=== PATIENT | male | born 1990 | race Caucasian/White ===

== ENCOUNTER 2016-08-07 00:22 | Emergency (ER) | payer MEDICAID ==
[2016-08-07 00:26] VITALS: BP 140/94
[2016-08-07] MEDS ORDERED: Fluorescein 1 MG Ophth Strip EYERT ONE (00:34)
[2016-08-07] MEDS ORDERED: Tetracaine HCl/PF 0.5% 4 ML Bottle EYERT ONE (00:34)
--- NOTE | 2016-08-07 00:51 | EDM.PDOC ---
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 This was earlier this evening. He has severe eye pain to the right eye. He has no other complaints. He did have one alcoholic beverage before coming in. He states it is difficult to see out of his eye as closing it makes it feel better. He did attempt to flush it at home. Onset: Today Severity: Moderate Right Eye Pain Score (Numeric/FACES): 6 - Related Data Allergies Allergy/AdvReac Type Severity Reaction Status Date / Time No Known Allergies Allergy Verified 03/31/15 19:15 Home Meds: Home Meds . [No Known Home Meds] 03/31/15 [History] Past Medical History - Past Health History Medical/Surgical History: Denies Medical/Surgical History - Past Surgical History HEENT Surgical History: Reports: Oral Surgery - Past Imaging History Past Imaging History: Reports: None - History Comment History Comment: No previous surgical history Social & Family History - Family History Cardiac: Reports: None Respiratory: Reports: None GI: Reports: None Musculoskeletal: Reports: None Neurological: Reports: None - Tobacco Use Smoking Status *Q: Current Every Day Smoker Years of Tobacco use: 16 Packs/Tins Daily: 1 - Caffeine Use Caffeine Use: Reports: Soda - Alcohol Use Days Per Week of Alcohol Use: 4 - Recreational Drug Use Recreational Drug Use: No - Living Situation & Occupation Living situation: Reports: ED ROS GENERAL - Review of Systems Review Of Systems: ROS reveals no pertinent complaints other than HPI. ED EXAM GENERAL W FULL EYE - Physical Exam Exam: See Below Exam Limited By: No Limitations General Appearance: Alert, WD/WN, Mild Distress Eye Exam: Right Eye: Corneal Abrasion, Bilateral Eye: EOMI, PERRL Visual Acuity (R) 20/: 25 Visual Acuity (L) 20/: 20 With Correction: Yes Eyelids: Right: Normal Appearance Cornea Exam: Right: Corneal Abrasion, Examined with Flourescein, Left: Normal Appearance Extraocular Movements: Bilateral: Intact Pupils: Normal Accommodation Pupillary Size: Bilateral: 3 mm Pupillary Reaction: Bilateral: Brisk Anterior Chamber: Bilateral: Normal Appearance Posterior Chamber: Bilateral: Normal Funduscopic Head: Atraumatic, Normocephalic Course - Vital Signs Last Recorded V/S: Last Vital Signs Temp 36.7 C 08/07/16 00:24 Pulse 78 08/07/16 00:24 Resp 18 08/07/16 00:24 BP 140/94 H 08/07/16 00:24 Pulse Ox 96 08/07/16 00:24 - Orders/Labs/Meds Meds: Medications Discontinued Medications Generic Name Dose Route Start Last Admin Trade Name [place] PRN Reason Stop Dose Admin Fluorescein Sodium 1 mg 08/07/16 00:34 08/07/16 00:39 Ful-Betzy EYERT 08/07/16 00:35 1 mg ONETIME ONE Administration Tetracaine HCl 1 ml 08/07/16 00:34 08/07/16 00:38 Tetracaine 0.5% Steri-Unit Shagufta EYERT 08/07/16 00:35 2 drop ONETIME ONE Administration - Re-Assessments/Exams Free Text/Narrative Re-Assessment/Exam: 08/07/16 01:24 tetracaine and fluorescein applied. No foreign object identified. Corneal abrasion. Nader lense applied to right eye to flush. 08/07/16 01:35 Departure - Departure Time of Disposition: 01:36 Disposition: Home, Self-Care 01 Condition: Good Clinical Impression: Corneal abrasion, right - Discharge Information Instructions: Eye Foreign Body, [id number], Corneal Abrasion, [id number] Forms: ED Department Discharge Additional Instructions: I did include instructions for eye foreign body this morning, though I did not see any objects in your eye. You do however have corneal abrasions. Take the Cipro eye drops to the right eye. Take 2 drops 3-4 times daily for 5 days or until finished. Follow up with your eye doctor if you continue to have pain in your eye. Take the pain medications only if needed. You may also try ibuprofen. USE EYE PROTECTION WHEN WORKING WITH TOOLS TO AVOID INJURY Please call us with any questions or concerns. - Problem List & Annotations (1) Corneal abrasion, right SNOMED Code(s): 92823891 Code(s): S05.01XA - INJ CONJUNCTIVA AND CORNEAL ABRASION W/O FB, RIGHT EYE, INIT Status: Acute Priority: Low Current Visit: Yes Qualifiers: Encounter type: initial encounter Qualified Code(s): S05.01XA - Injury of conjunctiva and corneal abrasion without foreign body, right eye, initial encounter - Problem List Review Problem List Initiated/Reviewed/Updated: Yes - Assessment/Plan Assessment:: right corneal abrasion Plan: I did include instructions for eye foreign body this morning, though I did not see any objects in your eye. You do however have corneal abrasions. Take the Cipro eye drops to the right eye. Take 2 drops 3-4 times daily for 5 days or until finished. Follow up with your eye doctor if you continue to have pain in your eye. Take the pain medications only if needed. You may also try ibuprofen. USE EYE PROTECTION WHEN WORKING WITH TOOLS TO AVOID INJURY Please call us with any questions or concerns.
[2016-08-07] MEDS ORDERED: Fluorescein 1 MG Ophth Strip ONE (01:26)
[2016-08-07] MEDS ORDERED: Erythromycin Base 0.5% Ophth Oint 3.5 GM Tube EYERT ONE (01:26)
[2016-08-07] MEDS ORDERED: Take Home: Acetaminophen/HYDROcodone 325-10 MG, 5 Tab Pack PO ONE (01:27)
[2016-08-07] MEDS ORDERED: Ciprofloxacin 0.3% Ophth Soln 2.5 ML Bottle EYERT ONE (01:30)
[2016-08-07] MEDS ORDERED: Acetaminophen/HYDROcodone 325-10 MG Tab PO ONE (01:30)
== END 2016-08-07 01:40 | disposition home or self-care (01) ==
LOC: VM.ED 00:22
DX: S05.01XA Injury of conjunctiva and corneal abrasion without foreign body, right eye, initial encounter (principal); F17.210 Nicotine dependence, cigarettes, uncomplicated; Z98.890 Other specified postprocedural states; X58.XXXA Exposure to other specified factors, initial encounter
CPT/HCPCS: 99283; A9270; 65210

== ENCOUNTER 2017-06-16 06:15 | Emergency (ER) | payer MEDICAID ==
[2017-06-16 06:21] VITALS: BP 137/95
--- NOTE | 2017-06-16 06:37 | EDM.PDOC ---
ED HPI GENERAL MEDICAL PROBLEM - General Chief Complaint: ENT Problem Stated Complaint: Right ear pain Time Seen by Provider: 06/16/17 06:30 Source of Information: Reports: Patient History Limitations: Reports: No Limitations - History of Present Illness INITIAL COMMENTS - FREE TEXT/NARRATIVE: Patient awoke with complaints of right ear pain. Some dizziness associated with this. No nausea or vomiting. He has no other symptoms. Onset: Today, Sudden Duration: Getting Worse Location: Reports: Other (right ear) Quality: Reports: Stabbing Severity: Moderate Associated Symptoms: Reports: No Other Symptoms Treatments BUFFER NICKEL: Reports: Other (see below) (none) right ear Pain Score (Numeric/FACES): 5 - Related Data Allergies Allergy/AdvReac Type Severity Reaction Status Date / Time No Known Allergies Allergy Verified 06/16/17 06:22 Home Meds: Home Meds . [No Known Home Meds] 03/31/15 [History] Past Medical History - Past Health History Medical/Surgical History: Denies Medical/Surgical History - Past Surgical History HEENT Surgical History: Reports: Oral Surgery - Past Imaging History Past Imaging History: Reports: None - History Comment History Comment: No previous surgical history Social & Family History - Family History Cardiac: Reports: None Respiratory: Reports: None GI: Reports: None Musculoskeletal: Reports: None Neurological: Reports: None - Tobacco Use Smoking Status *Q: Current Every Day Smoker Years of Tobacco use: 16 Packs/Tins Daily: 1 - Caffeine Use Caffeine Use: Reports: Soda - Alcohol Use Days Per Week of Alcohol Use: 4 - Recreational Drug Use Recreational Drug Use: No - Living Situation & Occupation Living situation: Reports: ED ROS ENT - Review of Systems Review Of Systems: See Below Constitutional: Reports: No Symptoms HEENT: Reports: Ear Pain (right) Respiratory: Reports: No Symptoms Cardiovascular: Reports: No Symptoms Endocrine: Reports: No Symptoms GI/Abdominal: Reports: No Symptoms : Reports: No Symptoms Musculoskeletal: Reports: No Symptoms Skin: Reports: No Symptoms Neurological: Reports: Dizziness Psychiatric: Reports: No Symptoms Hematologic/Lymphatic: Reports: No Symptoms Immunologic: Reports: No Symptoms ED EXAM, ENT - Physical Exam Exam: See Below Exam Limited By: No Limitations General Appearance: Alert, WD/WN, No Apparent Distress Eye Exam: Bilateral Eye: EOMI, PERRL Ears: Normal External Exam, Normal Canal, Hearing Grossly Normal, Normal TMs, TM Fluid Nose: Normal Inspection, Normal Mucousa, No Blood Mouth/Throat: Normal Inspection, Normal Gums, Normal Lips, Normal Oropharynx, Normal Teeth Head: Atraumatic, Normocephalic Neck: Normal Inspection, Supple, Non-Tender, Full Range of Motion Respiratory/Chest: No Respiratory Distress, Lungs Clear, Normal Breath Sounds, No Accessory Muscle Use, Chest Non-Tender Cardiovascular: Normal Peripheral Pulses, Regular Rate, Rhythm, No Edema, No Gallop, No JVD, No Murmur, No Rub Neurological: Alert, Oriented, CN II-XII Intact, Normal Cognition, Normal Gait, Normal Reflexes, No Motor/Sensory Deficits Psychiatric: Normal Affect, Normal Mood Skin: Warm, Dry, Intact, Normal Color, No Rash Lymphatic: No Adenopathy Course - Vital Signs Last Recorded V/S: Last Vital Signs Temp 36.9 C 06/16/17 06:15 Pulse 76 06/16/17 06:15 Resp 16 06/16/17 06:15 BP 137/95 H 06/16/17 06:15 Pulse Ox Departure - Departure Time of Disposition: 06:37 Disposition: Home, Self-Care 01 Condition: Good Clinical Impression: Fluid level behind tympanic membrane of right ear - Discharge Information Additional Instructions: You have fluid collection in your ear. Use antihistamines to help dry the fluid up. These can include claritin, zyrtec , benadryl can be used but may cause drowsiness. Take tylenol and ibuprofen for pain. Follow up at the clinic with your primary doctor for any additional symptom management. Call with any questions or concerns. - Problem List & Annotations (1) Fluid level behind tympanic membrane of right ear SNOMED Code(s): 027803508 Code(s): H65.91 - UNSPECIFIED NONSUPPURATIVE OTITIS MEDIA, RIGHT EAR Status : Acute Priority: Low - Problem List Review Problem List Initiated/Reviewed/Updated: Yes - Assessment/Plan Assessment:: fluid collection behind right ear TM Plan: You have fluid collection in your ear. Use antihistamines to help dry the fluid up. These can include claritin, zyrtec , benadryl can be used but may cause drowsiness. Take tylenol and ibuprofen for pain. Follow up at the clinic with your primary doctor for any additional symptom management. Call with any questions or concerns.
== END 2017-06-16 06:45 | disposition home or self-care (01) ==
LOC: VM.ED 06:15
DX: H65.91 Unspecified nonsuppurative otitis media, right ear (principal); F17.210 Nicotine dependence, cigarettes, uncomplicated
CPT/HCPCS: 99282

== ENCOUNTER 2017-08-06 04:10 | Emergency (ER) | payer MEDICAID ==
[2017-08-06] MEDS ORDERED: Ondansetron 4 MG/2 ML SDV IVPUSH ONE (04:21)
[2017-08-06] MEDS ORDERED: Lactated Ringers 1,000 ML IV SCH (04:30)
[2017-08-06 05:17] LABS: CHLORIDE,CL 106 mmol/L (98-107); SODIUM,NA 143 mmol/L (136-145)
[2017-08-06 05:24] VITALS: BP 129/81
--- NOTE | 2017-08-06 08:47 | EDM.PDOC ---
ED HPI GENERAL MEDICAL PROBLEM - General Chief Complaint: Drug or Alcohol Abuse Stated Complaint: ETOH Time Seen by Provider: 08/06/17 04:21 Source of Information: Reports: Patient, EMS History Limitations: Reports: No Limitations - History of Present Illness INITIAL COMMENTS - FREE TEXT/NARRATIVE: Pt. presents to ER via EMS. Pt. has been out drinking and consumed several beers and "Jag bombs". Pt. states that he was feeling ill when lying in bed and crawled outside for some air. Pt. found pt. lying in the grass and stated that it was difficult to wake the pt. He denies any trauma. EMS stated that he was alert to verbal stimuli and recalls events of the night. Pt. denies any chest pain, shortness of breath, lightheadedness, or weakness. His only complaint is that of GI discomfort and nausea. He denies vomiting and diarrhea. Location: Reports: Generalized - Related Data Allergies Allergy/AdvReac Type Severity Reaction Status Date / Time No Known Allergies Allergy Verified 08/06/17 05:21 Home Meds: Home Meds . [No Known Home Meds] 03/31/15 [History] Past Medical History - Past Health History Medical/Surgical History: Denies Medical/Surgical History - Past Surgical History HEENT Surgical History: Reports: Oral Surgery - Past Imaging History Past Imaging History: Reports: None - History Comment History Comment: No previous surgical history Social & Family History - Family History Cardiac: Reports: None Respiratory: Reports: None GI: Reports: None Musculoskeletal: Reports: None Neurological: Reports: None - Tobacco Use Smoking Status *Q: Current Every Day Smoker Years of Tobacco use: 10 Packs/Tins Daily: 1 - Caffeine Use Caffeine Use: Reports: Soda - Recreational Drug Use Recreational Drug Use: No - Living Situation & Occupation Living situation: Reports: ED ROS GENERAL - Review of Systems Review Of Systems: See Below Constitutional: Reports: No Symptoms HEENT: Reports: No Symptoms Respiratory: Reports: No Symptoms Cardiovascular: Reports: No Symptoms Endocrine: Reports: No Symptoms GI/Abdominal: Reports: Abdominal Pain, Nausea : Reports: No Symptoms Musculoskeletal: Reports: No Symptoms Skin: Reports: No Symptoms Neurological: Reports: No Symptoms Psychiatric: Reports: No Symptoms Hematologic/Lymphatic: Reports: No Symptoms Immunologic: Reports: No Symptoms ED EXAM, GENERAL - Physical Exam Exam: See Below Exam Limited By: No Limitations General Appearance: Alert, WD/WN, No Apparent Distress Eye Exam: Bilateral Eye: EOMI, Normal Fundi, Normal Inspection, PERRL Ears: Normal External Exam, Normal Canal, Hearing Grossly Normal, Normal TMs Nose: Normal Inspection, Normal Mucosa, No Blood Throat/Mouth: Normal Inspection, Normal Lips, Normal Teeth, Normal Gums, Normal Oropharynx, Normal Voice, No Airway Compromise Head: Atraumatic, Normocephalic Neck: Normal Inspection, Supple, Non-Tender, Full Range of Motion Respiratory/Chest: No Respiratory Distress, Lungs Clear, Normal Breath Sounds, No Accessory Muscle Use, Chest Non-Tender Cardiovascular: Normal Peripheral Pulses, Regular Rate, Rhythm, No Edema, No Gallop, No JVD, No Murmur, No Rub Peripheral Pulses: 4+: Radial (L), Radial (R) GI/Abdominal: Normal Bowel Sounds, Soft, Non-Tender, No Organomegaly, No Distention, No Abnormal Bruit, No Mass (Male) Exam: Deferred Rectal (Males) Exam: Deferred Back Exam: Normal Inspection, Full Range of Motion, NT Extremities: Normal Inspection, Normal Range of Motion, Non-Tender, Normal Capillary Refill, No Pedal Edema Neurological: Alert, Oriented, CN II-XII Intact, Normal Cognition, Normal Gait, Normal Reflexes, No Motor/Sensory Deficits Psychiatric: Normal Affect, Normal Mood Skin Exam: Warm, Dry, Intact, Normal Color, No Rash Course - Vital Signs Last Recorded V/S: Last Vital Signs Temp 36.6 C 08/06/17 04:10 Pulse 83 08/06/17 04:10 Resp 14 08/06/17 04:10 BP 129/81 08/06/17 04:10 Pulse Ox 94 L 08/06/17 04:10 - Orders/Labs/Meds Labs: Laboratory Tests 08/06/17 08/06/17 Range/Units 04:51 04:51 WBC 10.1 H (4.0-10.0) x10^3/uL RBC 4.81 (4.5-6.0) x10^6/uL Hgb 14.6 D (14.0-18.0) g/dL Hct 43.2 (40.0-52.0) % MCV 89.8 D (78.0-93.0) fL MCH 30.4 (26.0-32.0) pg MCHC 33.8 (32.0-36.0) g/dL RDW Coeff of Lara 13.4 (10.0-15.0) % Plt Count 214 (130-400) x10^3/uL Neut % (Auto) 69.9 (50.0-80.0) % Lymph % (Auto) 20.8 L (25.0-50.0) % [place] % (Auto) 7.4 (2.0-11.0) % Eos % (Auto) 1.7 (0.0-4.0) % Baso % (Auto) 0.2 (0.2-1.2) % Sodium 143 (136-145) mmol/L Potassium 3.7 (3.5-5.1) mmol/L Chloride 106 (98-107) mmol/L Carbon Dioxide 26 (21-32) mmol/L Anion Gap 14.7 (10-20) mmol/L BUN 8 (7-18) mg/dL Creatinine 0.9 (0.70-1.30) mg/dL Est Cr Clr Drug Dosing TNP Estimated GFR (MDRD) > 60 Glucose 107 H (74-106) mg/dL Calcium 7.9 L (8.5-10.1) mg/dL Corrected Calcium 8.38 L (8.5-10.1) mg/dL Total Bilirubin 0.2 (0.2-1.0) mg/dL AST 26 (15-37) U/L ALT 62 (16-63) U/L Alkaline Phosphatase 95 (46-116) U/L Total Protein 6.7 (6.4-8.2) g/dL Albumin 3.4 (3.4-5.0) g/dL Globulin 3.3 Albumin/Globulin Ratio 1.03 Ethyl Alcohol 116 H (0-3) mg/dL Meds: Medications Discontinued Medications Generic Name Dose Route Start Last Admin Trade Name Freq PRN Reason Stop Dose Admin Lactated Ringer's 1,000 mls @ 500 mls/hr 08/06/17 04:30 08/06/17 04:23 Ringers, Lactated IV 500 mls/hr ASDIRECTED CASS Administration Ondansetron HCl 4 mg 08/06/17 04:21 08/06/17 04:26 Zofran IVPUSH 08/06/17 04:22 4 mg ONETIME ONE Administration Departure - Departure Time of Disposition: 05:32 Disposition: Home, Self-Care 01 Condition: Good Clinical Impression: Intoxication - Discharge Information Instructions: Alcohol Intoxication, [id number] Referrals: PCP,Unobtain [Ordering Only Provider] - Forms: ED Department Discharge Additional Instructions: Follow-up in clinic as needed.
== END 2017-08-06 05:32 | disposition home or self-care (01) ==
LOC: VM.ED 04:10
DX: F10.129 Alcohol abuse with intoxication, unspecified (principal); F17.210 Nicotine dependence, cigarettes, uncomplicated; Y90.5 Blood alcohol level of 100-119 mg/100 ml
CPT/HCPCS: 36415; 80053; 85025; 96365; 96375; 99284; G0480; J2405; J7120

== ENCOUNTER 2019-01-02 00:33 | Emergency (ER) | payer MEDICAID ==
[2019-01-02 01:06] VITALS: BP 137/96; PULSE 91
--- NOTE | 2019-01-02 01:06 | EDM.PDOC ---
ED HPI GENERAL MEDICAL PROBLEM - General Chief Complaint: General Stated Complaint: Lethargy - Dizzy Time Seen by Provider: 01/02/19 00:45 - History of Present Illness INITIAL COMMENTS - FREE TEXT/NARRATIVE: Jarret is a 28 y/o male who comes to the ER with vague feelings of lethargy and feeling "hot and cold". He had hemorrhoid surgery on Monday in [place]. He has been using hydrocodone for pain with the last dose taken at 1600 today. He has not yet had a BM since surgery. He is taking stool softners. He does admit to smoking marijuana at 2pm today and then started to feel weird after that. Rectal Area Pain Score (Numeric/FACES): 10 - Related Data Allergies Allergy/AdvReac Type Severity Reaction Status Date / Time No Known Allergies Allergy Verified 01/02/19 00:34 Home Meds: Home Meds . [No Known Home Meds] 03/31/15 [History] Past Medical History - Past Health History Medical/Surgical History: Denies Medical/Surgical History - Past Surgical History HEENT Surgical History: Reports: Oral Surgery - Past Imaging History Past Imaging History: Reports: None - History Comment History Comment: No previous surgical history Social & Family History - Family History Cardiac: Reports: None Respiratory: Reports: None GI: Reports: None Musculoskeletal: Reports: None Neurological: Reports: None - Caffeine Use Caffeine Use: Reports: Soda - Living Situation & Occupation Living situation: Reports: ED ROS GENERAL - Review of Systems Review Of Systems: See Below Constitutional: Reports: Malaise, Weakness HEENT: Reports: No Symptoms Respiratory: Reports: No Symptoms Cardiovascular: Reports: No Symptoms Endocrine: Reports: No Symptoms GI/Abdominal: Reports: Constipation : Reports: No Symptoms Musculoskeletal: Reports: No Symptoms Skin: Reports: No Symptoms Neurological: Reports: No Symptoms Psychiatric: Reports: No Symptoms Hematologic/Lymphatic: Reports: No Symptoms Immunologic: Reports: No Symptoms ED EXAM, GENERAL - Physical Exam Exam: See Below Exam Limited By: No Limitations General Appearance: Alert, WD/WN, Other (Adult male, Lying on ER cart) Ears: Hearing Grossly Normal Nose: Normal Inspection Throat/Mouth: Normal Lips, Normal Voice, No Airway Compromise Head: Atraumatic, Normocephalic Neck: Normal Inspection Respiratory/Chest: No Respiratory Distress, Lungs Clear, Normal Breath Sounds, Chest Non-Tender Cardiovascular: Normal Peripheral Pulses, Regular Rate, Rhythm, No Edema GI/Abdominal: Normal Bowel Sounds, Soft (Male) Exam: Deferred Rectal (Males) Exam: Other (note red surgical rubberband protruding from rectum , no obvious signs of infection, tenderness with exam to just spread buttocks) Back Exam: Normal Inspection Extremities: Normal Inspection, Normal Range of Motion, Normal Capillary Refill Neurological: Alert, Oriented, CN II-XII Intact, Normal Cognition Psychiatric: Anxious Skin Exam: Warm, Dry, Intact, Normal Color Lymphatic: No Adenopathy Course - Vital Signs Text/Narrative:: The patient was seen by the [facility] Labs an Xrays ordered. He was offered pain meds , but declined. 0130 Lab results reviewed. All negative other than UDS + for THC and Opiates as expected. 0140 Xray reviewed, note large amount fo gas and stool in colon. Advised to obtain Magnesium Citrate OTC, Discharge instructions were given and he left the ER in stable condition. Last Recorded V/S: Last Vital Signs Temp 36.2 C 01/02/19 01:03 Pulse 91 01/02/19 01:03 Resp 14 01/02/19 01:03 BP 137/96 H 01/02/19 01:03 Pulse Ox 98 01/02/19 01:03 - Orders/Labs/Meds Orders: Active Orders 24 hr Category Date Time Status Abdomen 2V AP Flat Upright [CR] Stat Exams 01/02/19 01:00 Ordered Labs: Laboratory Tests 01/02/19 01/02/19 01/02/19 Range/Units 01:09 01:09 01:12 WBC 8.9 (4.0-10.0) x10^3/uL RBC 5.64 (4.5-6.0) x10^6/uL Hgb 17.0 D (14.0-18.0) g/dL Hct 47.9 (40.0-52.0) % MCV 84.9 D (78.0-93.0) fL MCH 30.1 (26.0-32.0) pg MCHC 35.5 (32.0-36.0) g/dL RDW Coeff of Lara 12.9 (10.0-15.0) % Plt Count 246 (130-400) x10^3/uL Neut % (Auto) 55.8 (50.0-80.0) % Lymph % (Auto) 34.0 (25.0-50.0) % [place] % (Auto) 6.6 (2.0-11.0) % Eos % (Auto) 3.3 (0.0-4.0) % Baso % (Auto) 0.3 (0.2-1.2) % Sodium 141 (136-145) mmol/L Potassium 4.0 (3.5-5.1) mmol/L Chloride 102 (98-107) mmol/L Carbon Dioxide 27 (21-32) mmol/L Anion Gap 16.0 (10-20) mmol/L BUN 11 (7-18) mg/dL Creatinine 1.2 (0.70-1.30) mg/dL Est Cr Clr Drug Dosing 72.44 mL/min Estimated GFR (MDRD) > 60 Glucose 115 H (74-106) mg/dL Calcium 8.5 (8.5-10.1) mg/dL Corrected Calcium 8.74 (8.5-10.1) mg/dL Total Bilirubin 0.5 (0.2-1.0) mg/dL AST 27 (15-37) U/L ALT 49 (16-63) U/L Alkaline Phosphatase 95 (46-116) U/L Total Protein 7.6 (6.4-8.2) g/dL Albumin 3.7 (3.4-5.0) g/dL Globulin 3.9 Albumin/Globulin Ratio 0.95 Urine Color Yellow (YELLOW) Urine Appearance Clear (CLEAR) Urine pH 6.5 (5.0-8.0) Ur Specific [place] 1.010 Urine Protein Negative (NEGATIVE) mg/dL Urine Glucose (UA) Negative (NEGATIVE) mg/dL Urine Ketones Negative (NEGATIVE) mg/dL Urine Occult Blood Negative (NEGATIVE) Urine Nitrite Negative (NEGATIVE) Urine Bilirubin Negative (NEGATIVE) Urine Urobilinogen 0.2 (0.2) EU/dL Ur Leukocyte Esterase Negative (NEGATIVE) Urine Opiates Screen (NEGATIVE) Ur Buprenorphine Scrn (NEGATIVE) Ur Oxycodone Screen (NEGATIVE) Ur EDDP (Meth Metab) (NEGATIVE) Urine Methadone Screen (NEGATIVE) Ur Barbituates Screen (NEGATIVE) Ur Tricyclics Screen (NEGATIVE) Ur Phencyclidine Scrn (NEGATIVE) Ur Amphetamines Screen (NEGATIVE) U Methamphetamines Scrn (NEGATIVE) Urine MDMA Screen (NEGATIVE) U Benzodiazepines Scrn (NEGATIVE) Urine Cocaine Screen (NEGATIVE) U Marijuana (THC) Screen (NEGATIVE) 01/02/19 Range/Units 01:12 WBC (4.0-10.0) x10^3/uL RBC (4.5-6.0) x10^6/uL Hgb (14.0-18.0) g/dL Hct (40.0-52.0) % MCV (78.0-93.0) fL MCH (26.0-32.0) pg MCHC (32.0-36.0) g/dL RDW Coeff of Lara (10.0-15.0) % Plt Count (130-400) x10^3/uL Neut % (Auto) (50.0-80.0) % Lymph % (Auto) (25.0-50.0) % [place] % (Auto) (2.0-11.0) % Eos % (Auto) (0.0-4.0) % Baso % (Auto) (0.2-1.2) % Sodium (136-145) mmol/L Potassium (3.5-5.1) mmol/L Chloride (98-107) mmol/L Carbon Dioxide (21-32) mmol/L Anion Gap (10-20) mmol/L BUN (7-18) mg/dL Creatinine (0.70-1.30) mg/dL Est Cr Clr Drug Dosing mL/min Estimated GFR (MDRD) Glucose (74-106) mg/dL Calcium (8.5-10.1) mg/dL Corrected Calcium (8.5-10.1) mg/dL Total Bilirubin (0.2-1.0) mg/dL AST (15-37) U/L ALT (16-63) U/L Alkaline Phosphatase (46-116) U/L Total Protein (6.4-8.2) g/dL Albumin (3.4-5.0) g/dL Globulin Albumin/Globulin Ratio Urine Color (YELLOW) Urine Appearance (CLEAR) Urine pH (5.0-8.0) Ur Specific [place] Urine Protein (NEGATIVE) mg/dL Urine Glucose (UA) (NEGATIVE) mg/dL Urine Ketones (NEGATIVE) mg/dL Urine Occult Blood (NEGATIVE) Urine Nitrite (NEGATIVE) Urine Bilirubin (NEGATIVE) Urine Urobilinogen (0.2) EU/dL Ur Leukocyte Esterase (NEGATIVE) Urine Opiates Screen Positive H (NEGATIVE) Ur Buprenorphine Scrn Negative (NEGATIVE) Ur Oxycodone Screen Negative (NEGATIVE) Ur EDDP (Meth Metab) Negative (NEGATIVE) Urine Methadone Screen Negative (NEGATIVE) Ur Barbituates Screen Negative (NEGATIVE) Ur Tricyclics Screen Negative (NEGATIVE) Ur Phencyclidine Scrn Negative (NEGATIVE) Ur Amphetamines Screen Negative (NEGATIVE) U Methamphetamines Scrn Negative (NEGATIVE) Urine MDMA Screen Negative (NEGATIVE) U Benzodiazepines Scrn Negative (NEGATIVE) Urine Cocaine Screen Negative (NEGATIVE) U Marijuana (THC) Screen Positive H (NEGATIVE) - Re-Assessments/Exams Free Text/Narrative Re-Assessment/Exam: 01/02/19 01:43 XR Abdomen 2V=note large amount of gas and stool in colon Departure - Departure Time of Disposition: 01:44 Disposition: DC/Tfer W/I Hosp To Swing 61 Condition: Good Clinical Impression: Constipation - Discharge Information *PRESCRIPTION DRUG MONITORING PROGRAM REVIEWED*: Not Applicable *COPY OF PRESCRIPTION DRUG MONITORING REPORT IN PATIENT CHRISSY: Not Applicable Instructions: Constipation, Adult Referrals: Jami Feliz PA-C [Primary Care Provider] - Forms: ED Department Discharge Additional Instructions: -Magnesium Citrate 1 bottle orally. Pick this up at the pharmacy or dept store. -Drink plenty of fluids. -Follow up with your surgeon for further concerns regarding your post op guidelines -Return to the ER as needed - My Orders Last 24 Hours: My Active Orders 01/02/19 01:00 Abdomen 2V AP Flat Upright [CR] Stat - Assessment/Plan Last 24 Hours: My Active Orders 01/02/19 01:00 Abdomen 2V AP Flat Upright [CR] Stat
[2019-01-02 01:24] LABS: BUPRENORPHINE,URINE NEGATIVE (NEGATIVE); MARIJUANA,URINE POSITIVE (NEGATIVE); METHYLENEDIOXYMETHAMP,UR NEGATIVE (NEGATIVE)
[2019-01-02 01:25] LABS: PHENCYCLIDINE,URINE NEGATIVE (NEGATIVE)
[2019-01-02 01:38] LABS: CHLORIDE,CL 102 mmol/L (98-107); SODIUM,NA 141 mmol/L (136-145)
--- NOTE | 2019-01-02 07:51 | CR ---
[id number] RAD/RAD Abd Flat and Upright 2V EXAM: RAD Abd Flat and Upright 2V INDICATION: CONSTIPATED. COMPARISON: None. DISCUSSION: Unobstructed bowel gas pattern. No radiographically evident pneumoperitoneum. Moderate to large amount retained stool within the colon. IMPRESSION: Moderate to large amount of retained stool within the colon. No evidence of obstruction. Austen Virk DO 01/02/19 0750 Thank you for allowing us to participate in the care of your patient.
== END 2019-01-02 01:49 | disposition home or self-care (01) ==
LOC: VM.ED 00:33
DX: K59.00 Constipation, unspecified (principal)
CPT/HCPCS: 36415; 74019; 80053; 80305-QW; 81003; 85025; 99285-25

== ENCOUNTER 2020-12-13 10:23 | Emergency (ER) | payer MEDICAID ==
[2020-12-13 11:11] VITALS: BP 146/101; PULSE 87
--- NOTE | 2020-12-13 11:11 | EDM.PDOC ---
ED HPI GENERAL MEDICAL PROBLEM - General Chief Complaint: Abdominal Pain Stated Complaint: STOMACH PAIN, DIZZY Time Seen by Provider: 12/13/20 10:40 Source of Information: Reports: Patient History Limitations: Reports: No Limitations - History of Present Illness INITIAL COMMENTS - FREE TEXT/NARRATIVE: -year-old white male that presents the ER with ongoing diarrhea about 20 times last 2 days nausea with vomiting x1 lightheadedness dizziness and abdominal cramping. Patient states that this started yesterday after being diagnosed with shingles 3 days ago and started acyclovir 2 days ago. Patient states that the diarrhea started about 4 5 hours after starting the medication and abdominal cramping started today.. Patient states has been eating and drinking normally with no change in diet He states abdominal cramping is about a 6 out of 10 diffusely all over and he states his shingles pain is probably about a 8 out of 10 on the left side epigastric area he feels like it sharp and burning stabbing. He has no other complaints at this time Duration: Day(s): Location: Reports: Chest, Abdomen Quality: Reports: Burning, Dull, Pressure, Sharp, Stabbing Improves with: Reports: None Worsens with: Reports: None Associated Symptoms: Reports: Nausea/Vomiting, Rash. Denies: Chest Pain, Cough, Diaphoresis, Fever/Chills, Headaches, Loss of Appetite, Shortness of Breath - Related Data Allergies Allergy/AdvReac Type Severity Reaction Status Date / Time No Known Allergies Allergy Verified 01/02/19 00:34 Home Meds: Home Meds . [No Known Home Meds] 03/31/15 [History] Past Medical History - Past Health History Medical/Surgical History: Denies Medical/Surgical History Gastrointestinal History: Reports: Other (See Below) Other Gastrointestinal History: Perianal cyst Psychiatric History: Reports: Anxiety, Depression - Past Surgical History HEENT Surgical History: Reports: Oral Surgery - Past Imaging History Past Imaging History: Reports: None - History Comment History Comment: No previous surgical history Social & Family History - Family History Cardiac: Reports: None Respiratory: Reports: None GI: Reports: None Musculoskeletal: Reports: None Neurological: Reports: None - Caffeine Use Caffeine Use: Reports: Soda - Living Situation & Occupation Living situation: Reports: ED ROS GENERAL - Review of Systems Review Of Systems: See Below Constitutional: Reports: No Symptoms. Denies: Fever, Chills, Malaise, Weakness, Fatigue HEENT: Reports: No Symptoms Respiratory: Reports: No Symptoms Cardiovascular: Reports: No Symptoms Endocrine: Reports: No Symptoms GI/Abdominal: Reports: Abdominal Pain, Diarrhea, Nausea, Vomiting. Denies: Black Stool, Bloody Stool, Constipation, Decreased Appetite : Reports: No Symptoms Musculoskeletal: Reports: No Symptoms Skin: Reports: No Symptoms Neurological: Reports: No Symptoms Psychiatric: Reports: No Symptoms Hematologic/Lymphatic: Reports: No Symptoms Immunologic: Reports: No Symptoms ED EXAM, DIZZINESS - Physical Exam Exam: See Below Exam Limited By: No Limitations General Appearance: Alert, WD/WN, No Apparent Distress, Other (Patient is noted to be sleeping prior to going into the room on the bed no acute distress noted) Eye Exam: Bilateral Eye: EOMI, Normal Inspection, PERRL Ears: Normal External Exam, Normal Canal, Hearing Grossly Normal, Normal TMs, Other (Right-sided cerumen impaction) Nose: Normal Inspection, No Blood Throat/Mouth: Normal Inspection, Normal Lips, Normal Teeth, Normal Gums, Normal Oropharynx, Normal Voice, No Airway Compromise Head Exam: Atraumatic, Normocephalic Neck: Normal Inspection, Supple, Non-Tender, Full Range of Motion Respiratory/Chest: No Respiratory Distress, Lungs Clear, Normal Breath Sounds, No Accessory Muscle Use, Chest Non-Tender Cardiovascular: Normal Peripheral Pulses, Regular Rate, Rhythm, No Edema, No Gallop, No JVD, No Murmur, No Rub GI/Abdominal: Normal Bowel Sounds, Soft, Non-Tender, No Organomegaly, No Distention, No Abnormal Bruit, Other (Patient has no tenderness palpation over the abdomen there is a noted multiple stage vesicular cropping erythematous base rash across the T8 area anterior chest wall epigastric area he has negative pelvic rock negative heel slap negative obturator negative psoas). No: Guarding, Rigid, Rebound, Tender Neurological: Alert, Normal Mood/Affect, Normal Dorsiflexion, CN II-XII Intact, Normal Gait, No Motor/Sensory Deficits, Oriented x 3 Back Exam: Normal Inspection, Full Range of Motion, Vertebral Tenderness. No: CVA Tenderness (L), CVA Tenderness (R) Extremities: Normal Inspection, Normal Range of Motion, Non-Tender, No Pedal Edema Psychiatric: Normal Affect, Normal Mood Skin Exam: Warm, Dry, Intact, Normal Color, Other (See rash description on abdomen for shingles). No: No Rash Course - Vital Signs Text/Narrative:: After exam discussing course of treatment with normal saline Jagruti and Lynette patient states at this time he does not want any course of treatment he does wanted to make sure he was not dying and does not want to be here anymore now wants to sign out AMA. I discussed risk versus benefit with the patient he still does not want any course of treatment and is willing to sign out AMA Patient signed AMA discharge from the hospital Last Recorded V/S: Last Vital Signs Temp 36.9 C 12/13/20 11:06 Pulse 87 12/13/20 11:06 Resp 18 12/13/20 11:06 BP 146/101 H 12/13/20 11:06 Pulse Ox 96 12/13/20 11:06 Departure - Departure Time of Disposition: 11:10 Disposition: Home, Self-Care 01 Condition: Good Clinical Impression: Abdominal pain, Diarrhea, Shingles, Left against medical advice - Discharge Information *PRESCRIPTION DRUG MONITORING PROGRAM REVIEWED*: No *COPY OF PRESCRIPTION DRUG MONITORING REPORT IN PATIENT CHRISSY: No Referrals: Jami Feliz PA-C [Primary Care Provider] - Forms: ED Department Discharge Sepsis Event Note (ED) - Focused Exam Vital Signs: Vital Signs Temp Pulse Resp BP Pulse Ox 12/13/20 11:06 36.9 C 87 18 146/101 H 96 - Problem List & Annotations (1) Left against medical advice SNOMED Code(s): 781868754 Code(s): Z53.29 - PROC/TRTMT NOT CRD OUT BEC PT DECISION FOR OTH REASONS Status: Acute (2) Abdominal pain SNOMED Code(s): 66493907 Code(s): R10.9 - UNSPECIFIED ABDOMINAL PAIN Status: Acute (3) Diarrhea SNOMED Code(s): 57007841 Code(s): R19.7 - DIARRHEA, UNSPECIFIED Status: Acute (4) Shingles SNOMED Code(s): 6675420 Code(s): B02.9 - ZOSTER WITHOUT COMPLICATIONS Status: Acute
== END 2020-12-13 11:11 | disposition home or self-care (01) ==
LOC: VM.ED 10:23
DX: R19.7 Diarrhea, unspecified (principal); R10.84 Generalized abdominal pain; B02.9 Zoster without complications; H61.21 Impacted cerumen, right ear
CPT/HCPCS: 99283; 99284

== ENCOUNTER 2023-07-04 21:24 | Emergency (ER) | payer SELFPAY ==
[2023-07-04] MEDS ORDERED: Methocarbamol 500 MG Tab PO ONE (21:48)
[2023-07-04 22:03] LABS: BASOPHILS PERCENT AUTO 0.3 % (0.2-1.2); EOSINOPHILS ABSOLUTE AUTO 0.1 x10^3/uL (0.0-0.5); HEMOGLOBIN 16.4 g/dL (14.0-18.0); IMMATURE GRAN ABSOLUTE AUTO 0.01 x10^3/uL (0.00-0.07); LYMPHOCYTES ABSOLUTE AUTO 3.3 x10^3/uL (1.0-4.8); LYMPHOCYTES PERCENT AUTO 33.8 % (25.0-50.0); MEAN CORPUSCULAR HEMOGLOBIN 31.2 pg (26.0-32.0); MEAN CORPUSCULAR HGB CONC 35.7 g/dL (32.0-36.0); MEAN CORPUSCULAR VOLUME 87.6 fL (78.0-93.0); MONOCYTES ABSOLUTE AUTO 0.8 x10^3/uL (0.0-0.8); MONOCYTES PERCENT AUTO 8.5 % (2.0-11.0); NEUTROPHILS ABSOLUTE AUTO 5.5 x10^3/uL (1.8-7.7); NEUTROPHILS PERCENT AUTO 56.3 % (50.0-80.0); PLATELET COUNT,PLT 264 x10^3/uL (130-400); RED BLOOD CELL COUNT 5.25 x10^6/uL (4.5-6.0); WHITE BLOOD CELL COUNT,WBC 9.8 x10^3/uL (4.0-10.0)
[2023-07-04] MEDS: Ketorolac 15 MG/ML SDV IVPUSH ONE (22:05)
[2023-07-04] MEDS: Aspirin 81 MG Tab.Chew PO ONE (22:07)
[2023-07-04 22:23] LABS: ANION GAP 16.4 mmol/L (5-15); BLOOD UREA NITROGEN,BUN 8 mg/dL (7-18); CALCIUM 9.2 mg/dL (8.5-10.1); CARBON DIOXIDE,CO2 26 mmol/L (21-32); CHLORIDE,CL 104 mmol/L (98-107); CREATININE 1.1 mg/dL (0.70-1.30); ESTIMATED GFR 90 mL/min (>=60); GLUCOSE RANDOM 114 mg/dL (70-99); POTASSIUM,K 3.4 mmol/L (3.5-5.1); SODIUM,NA 143 mmol/L (136-145)
[2023-07-05 01:36] VITALS: PULSE 92
[2023-07-05 01:58] VITALS: BP 125/64
== END 2023-07-04 23:47 | disposition home or self-care (01) ==
LOC: VM.ED 21:24
DX: R07.89 Other chest pain (principal)
CPT/HCPCS: 36415; 71046; 80048; 84484; 85025; 85379; 93005; 96374; 99285-25; A9270-GY; J1885